=== PATIENT | female | born 1935 | race Caucasian/White ===

== ENCOUNTER → 2016-09-16 | Outpatient (CLI) | payer MEDICARE, BC ==
[~2016-09-16] MED LIST: EVISTA 60 MG TA60 MG PO; LEVAQUIN500 MG PO; LIPITOR TAB 1010 MG PO; LOTREL 5-20 MG1 EACH PO; NORCO 10-325 T1 EACH PO; PREDNISONE 10 M10 MG PO; SYNTHROID75 MCG PO
== END ==
LOC: US 13:24
DX: E04.9 Nontoxic goiter, unspecified (principal); E01.0 Iodine-deficiency related diffuse (endemic) goiter
CPT/HCPCS: 76536

== ENCOUNTER → 2020-12-17 | Outpatient (CLI) | payer MEDICARE, BC | LOC: KOH-I 14:10 | DX: R63.4 Abnormal weight loss (principal); R59.1 Generalized enlarged lymph nodes | CPT/HCPCS: 71046 ==

== ENCOUNTER → 2021-01-02 | Outpatient (CLI) | payer MEDICARE, BC ==
[~2021-01-02] VITALS: Ht 157.5 cm; Wt 72.6 kg
== END ==
LOC: OPSV 12:00
DX: M81.0 Age-related osteoporosis without current pathological fracture (principal)
CPT/HCPCS: 96372